=== PATIENT | male | born 1980 | race Caucasian/White ===

== ENCOUNTER 2016-10-06 20:15 | Emergency (ER) | payer MEDICAID ==
[~2016-10-06] VITALS: Ht 182.9 cm; Wt 90.7 kg
[2016-10-06] MEDS ORDERED: ALBU8.5H3 INH (21:56)
[2016-10-06] MEDS ORDERED: MOME13HF2 INH (21:56)
[2016-10-06 22:40] LABS: BLOOD UREA NITROGEN 16 mg/dL (7-18)
[2016-10-06 23:22] VITALS: BP 118/83
== END 2016-10-06 23:26 | disposition home or self-care (01) ==
LOC: ED 23:23
DX: I82.5Z2 Chronic embolism and thrombosis of unspecified deep veins of left distal lower extremity (principal); M79.662 Pain in left lower leg; J45.909 Unspecified asthma, uncomplicated
CPT/HCPCS: 36415; 80048; 85025; 99285